=== PATIENT | male | born 1945 | race Caucasian/White ===

== ENCOUNTER 2017-03-04 13:55 | Emergency (ER) | payer MEDICARE ==
[~2017-03-04] VITALS: Ht 172.7 cm; Wt 85.0 kg
[2017-03-04 13:57] VITALS: BP 180/89; PULSE 79; RESP 15; TEMP 98.1; O2SAT 99
[2017-03-04] MEDS ORDERED: SIMV5TAB3 PO (15:11)
[2017-03-04] MEDS ORDERED: LISI2.5T3 PO (15:11)
[2017-03-04] MEDS ORDERED: COUM5TAB PO (15:11)
[2017-03-04 15:12] VITALS: BP 154/92; PULSE 65; RESP 16; O2SAT 99
--- NOTE | 2017-03-04 15:22 | PD ---
HPI Chief Complaint: Fall Time Seen by Provider: 14:57 Travel History International Travel<30 days: No Contact w/Intl Traveler<30days: No Traveled to known affect area: No History of Present Illness HPI This is a 71-year-old male who presents to the emergency department having had a mechanical fall when he was lifting his luggage slipping over the curb and hitting his head. The patient also sustained a cut to his nose. He reports a mild headache, constant, throbbing, with no associated loss of consciousness or vomiting. He is on Coumadin for a mechanical heart valve. PFSH Past Medical History Hx Anticoagulant Therapy: Yes (COUMADIN ) Cancer: Yes (LUNG) Cardiovascular Problems: Yes (ARRYTHMIA, VALVE REPLACEMENT ) High Cholesterol: Yes Chemotherapy: Yes Diminished Hearing: No Hypertension: Yes Tetanus Vaccination: < 5 Years Influenza Vaccination: Yes Past Surgical History Cardiac Surgery: Yes (AROTIC AUTO HIKER VALVE ) Other Surgery: Yes (L UPPER LOBECTOMY ) Social History Alcohol Use: Yes (OCC) Tobacco Use: No Substance Use: No Allergies-Medications (Allergen,Severity, Reaction): Coded Allergies: No Known Allergies (Unverified , 03/04/17) Reported Meds & Prescriptions Reported Meds & Active Scripts Active Reported Lisinopril 2.5 Mg Tab 2.5 Mg PO DAILY Coumadin (Warfarin) 5 Mg Tab 5 Mg PO DAILY Simvastatin 5 Mg Tab 5 Mg PO DAILY Review of Systems Except as stated in HPI: all other systems reviewed are Neg Physical Exam Narrative GENERAL:Well appearing, no acute distress SKIN: Semicircular superficial laceration to the nasal bridge, with well lined skin HEAD: Atraumatic. Normocephalic. Hematoma on the mid forehead. EYES: Pupils equal and round. No injection or drainage. ENT: Moist mucous membranes NECK: Trachea midline. No cervical spine tenderness. CARDIOVASCULAR: Regular rate and rhythm. No murmur appreciated. RESPIRATORY: Clear to auscultation. Breath sounds equal bilaterally. GASTROINTESTINAL: Abdomen soft, non-tender, nondistended. MUSCULOSKELETAL: No obvious deformities. NEUROLOGICAL: Awake and alert. No obvious cranial nerve deficits. Moving all extremities. PSYCHIATRIC: Appropriate mood and affect; insight and judgment normal. Data Data Last Documented VS Vital Signs Date Time Temp Pulse Resp B/P Pulse Ox O2 Delivery O2 Flow Rate FiO2 03/04/17 15:12 65 16 154/92 99 Room Air 03/04/17 13:[address] Brain W/O Iv Contrast(Rout) (03/04/17 ) Prothrombin Time / Inr (Pt) (03/04/17 15:02) Labs Laboratory Tests Test 03/04/17 15:15 Prothrombin Time 38.7 SEC Prothromb Time International 3.3 RATIO Ratio MDM Medical Decision Making Medical Screen Exam Complete: Yes Emergency Medical Condition: Yes Interpretation(s) afebrile, no tachycardia, hypertensive inr: 3.3 Last [address] 03/04/17 0000 Signed Impressions: Service Date/Time: Saturday, March 04, 2017 15:22 - CONCLUSION: Negative noncontrast head CT. Doroteo Hernandez MD Differential Diagnosis Subdural hematoma, epidural hematoma, subarachnoid hemorrhage Narrative Course This is a 71-year-old male who presents to the emergency department having sustained a closed head injury. He is on Coumadin for a mechanical valve. CT was obtained which was negative for intracranial hemorrhage. INR is 3.3. He has a superficial laceration on the nasal bridge which is repaired with Steri- Strips and glue. Patient will be discharged home. He was advised of the small possibility of delayed hemorrhage in Coumadin patients and he was told to return to the emergency department if he develops new symptoms. Procedures Procedure Narrative Laceration on the nasal bridge was cleansed with normal saline. Steri-Strips were applied and Dermabond was applied. Patient tolerated the procedure well. Diagnosis Primary Impression: Closed head injury Qualified Code: S09.90XA - Closed head injury, initial encounter Patient Instructions: General Instructions Additional Instructions: If you develop severe worsening headache, persistent vomiting, numbness, weakness, difficulty walking or difficulty talking return to the emergency department immediately. The glue film will fall off in 5-10 days. Exposure to water might make the glue fall off too soon. Call your doctor if the edges of the wound open or pull apart. Change your bandage daily until the glue film falls off. Keep the wound dry. Try to avoid scratching or picking at the film. Do not apply any ointments or creams over the film. You do not need to clean the wound. If it gets wet gently blot it dry with a soft towel. Do not soak or scrub the wound. If the wound develops increasing redness, pain, green or yellow discharge, swelling, foul odor, red streaks, or if youdevelops a fever return to the emergency department. Med/Other Pt SpecificInfo: No Change to Meds Disposition: 01 DISCHARGE HOME Condition: Stable Madeline Almaguer MD Mar 04, 2017 15:22
[2017-03-04 15:40] LABS: INTERNATIONAL NORMALIZED RATIO 3.3 RATIO; PROTHROMBIN TIME - PATIENT 38.7 SEC (9.8-11.6)
--- NOTE | 2017-03-04 15:54 | RADRPT ---
EXAM DATE/TIME: 03/04/2017 15:22 [facility] COMPARISON: No previous studies available for comparison. INDICATIONS : Fall today, abrasion to forehead. RADIATION DOSE: 37.52 CTDIvol (mGy) MEDICAL HISTORY : Cardiovascular disease. SURGICAL HISTORY : valve replacement ENCOUNTER: Initial ACUITY: 1 day PAIN SCALE: 0/10 LOCATION: Bilateral head TECHNIQUE: Multiple contiguous axial images were obtained of the head. Using automated exposure control and adj ustment of the mA and/or kV according to patient size, radiation dose was kept as low as reasonably a chievable to obtain optimal diagnostic quality images. DICOM format image data is available electro nically for review and comparison. FINDINGS: CEREBRUM: The ventricles are normal for age. No evidence of midline shift, mass lesion, hemorrhage or acute in farction. No extra-axial fluid collections are seen. POSTERIOR FOSSA: The cerebellum and brainstem are intact. The 4th ventricle is midline. The cerebellopontine angle i s unremarkable. EXTRACRANIAL: The visualized portion of the orbits is intact. SKULL: The calvaria is intact. No evidence of skull fracture. CONCLUSION: Negative noncontrast head CT. Doroteo Hernandez MD on March 04, 2017 at 15:52 Board Certified Radiologist. This report was verified electronically.
[2017-03-04 17:30] VITALS: BP 154/85
== END 2017-03-04 17:31 | disposition home or self-care (01) ==
LOC: NEPE 13:55
DX: S09.90XA Unspecified injury of head, initial encounter (principal); S01.21XA Laceration without foreign body of nose, initial encounter; E78.00 Pure hypercholesterolemia, unspecified; I10 Essential (primary) hypertension; I25.10 Atherosclerotic heart disease of native coronary artery without angina pectoris; Z79.01 Long term (current) use of anticoagulants; Z95.2 Presence of prosthetic heart valve
CPT/HCPCS: 12011; 70450; 85610